=== PATIENT | female | born 1995 | race Caucasian/White ===

== ENCOUNTER → 2016-10-02 | Outpatient (CLI) | payer OTHER ==
--- NOTE | 2016-10-02 16:39 | REP ---
Pelvic ultrasound including transabdominal, endovaginal and Doppler ultrasound assessment: The bladder is moderately distended. The uterus is anteverted and anteflexed and upper normal size measuring 9.7 x 4.1 x 5.8 cm. The endometrium is not thickened measuring 10 mm. The right ovary is normal size measuring 3.6 x 2.6 x 1.9 cm. There is no dominant right ovarian mass or cyst. There is vascular flow in the right ovary with the Doppler resistive index of the intraparenchymal arteries measuring 0.44. There is a 1.4 cm left ovarian follicle. Including the follicle the left ovary is normal size measuring 3.4 x 2.2 x 3.0 cm. There is vascular flow in the left ovary with the Doppler resistive index of the intraparenchymal arteries measuring 0.66. There is a trace of free fluid in the pelvis. Impression: There is vascular flow in both ovaries. There is a left ovarian 1.4 cm follicle. There is a trace of free fluid in the pelvis. Signed by Ozzy Winter MD 10/02/2016 04:31 P
== END ==
LOC: M RAD 12:54
PROVIDERS: ATTEND Physician Assistant
DX: N83.02 Follicular cyst of left ovary (principal)

== ENCOUNTER → 2017-02-08 | Outpatient (CLI) | payer OTHER ==
--- NOTE | 2017-02-10 18:12 | HOLTMON ---
[facility] Test Date: 2017-02-08 Pat Name: CRISTINO TORO Department: Room: - Gender: Room Service Bellhop: RAE DO : 1995 Requested By: Lidia Del Angel Order Number: [id number] Reading MD: Josemanuel Preciado Interpretive Statements Your patient's underlying rhythm was sinus with rate that varied between 58 and 132 bpm, averaging 93 bpm. There was no atrial or ventricular ectopic activity. No significant bradyarrhythmia or AV block. The patient reported "palpitations and shortness of breath" on 2 separate occasions. Rhythm strips at these time showed regular sinus with rate 95-109 bpm. Rhythm findings well within normal limits. Symptoms were not related to a cardiac arrhythmia. Electronically Signed On 02-10-2017 18:12:29 EST by Josemanuel Preciado
== END ==
LOC: M EKG 13:12
PROVIDERS: ATTEND Physician Assistant Medical
DX: R00.2 Palpitations (principal)

== ENCOUNTER → 2017-02-24 | Outpatient (CLI) | payer OTHER ==
--- NOTE | 2017-02-24 18:14 | REP ---
Clinical: Abdominal pain. Technique: Single supine view of the abdomen and pelvis. Findings: Moderate fecal stasis and possible associated constipation. No evidence for bowel obstruction. No organomegaly. No abnormal calcifications. Skeletal structures are intact. Impression: Moderate fecal stasis and assumed constipation. Signed by Mauro Trotter MD 02/24/2017 03:06 P
== END ==
LOC: M WUC 10:26
PROVIDERS: ATTEND Physician Assistant
DX: R10.32 Left lower quadrant pain (principal)

== ENCOUNTER → 2017-02-24 | Outpatient (REF) | payer OTHER | LOC: M LAB REF 13:47 | PROVIDERS: ATTEND Physician Assistant | DX: N39.0 Urinary tract infection, site not specified (principal) ==

== ENCOUNTER → 2017-02-26 | Outpatient (CLI) | payer OTHER ==
--- NOTE | 2017-02-26 14:27 | REP ---
PELVIC ULTRASOUND: Real-time sonographic evaluation of pelvis performed utilizing transabdominal and endovaginal technique. Bladder measures 5.8 x 4.0 x 9.4 cm. Uterus measures 7.6 x 3.1 x 4.7 cm. Endometrial thickness is normal at 4 mm. There is no endometrial fluid collection. The ovaries are normal in size and echotexture, right ovary measuring 3.7 x 1.7 x 2.5 cm, and left ovary 3.2 x 1.9 x 2.3 cm. There is no adnexal mass or free fluid. There is no evidence of ovarian torsion, with blood flow seen in each ovary with duplex Doppler evaluation, RI right ovary 0.52 and left ovary 0.58. IMPRESSION: Negative pelvic ultrasound. Signed by Ozzy Carmona MD 02/26/2017 03:55 P
== END ==
LOC: M RAD 12:13
PROVIDERS: ATTEND Physician Assistant
DX: N39.0 Urinary tract infection, site not specified (principal); N83.202 Unspecified ovarian cyst, left side